=== PATIENT | female | born 1940 | race Caucasian/White ===

== ENCOUNTER → 2017-11-24 | Outpatient (CLI) | payer OTHER ==
[~2017-11-24] MED LIST: AMOX TR-K CLV1 EAC4 PO; ANTIVERT25 MG PO; LASIX 40 MG TAB40 M2 PO; LIPO-FLAVONOID1 EACH PO; OCUVITE LUTEIN1 EAC2 PO; PROPANOLOL ER PO; RESVERATROL PL1 EACH PO; TYLENOL EXTRA500 MG PO; VITAMIN D1000 UNI1 PO; VITAMINC500 PO
== END ==
LOC: M.WC 01:32
DX: I87.2 Venous insufficiency (chronic) (peripheral) (principal); L97.821 Non-pressure chronic ulcer of other part of left lower leg limited to breakdown of skin; I89.0 Lymphedema, not elsewhere classified; Z86.718 Personal history of other venous thrombosis and embolism; Z90.710 Acquired absence of both cervix and uterus

== ENCOUNTER → 2017-11-29 | Outpatient (CLI) | payer OTHER | LOC: M.WC 11-22 01:34 | DX: I87.2 Venous insufficiency (chronic) (peripheral) (principal); L97.821 Non-pressure chronic ulcer of other part of left lower leg limited to breakdown of skin; I89.0 Lymphedema, not elsewhere classified; Z86.718 Personal history of other venous thrombosis and embolism; Z90.710 Acquired absence of both cervix and uterus ==

== ENCOUNTER → 2017-12-06 | Outpatient (CLI) | payer OTHER | LOC: M.WC 01:53 | DX: I87.2 Venous insufficiency (chronic) (peripheral) (principal); L97.811 Non-pressure chronic ulcer of other part of right lower leg limited to breakdown of skin; L97.821 Non-pressure chronic ulcer of other part of left lower leg limited to breakdown of skin; I89.0 Lymphedema, not elsewhere classified; F32.9 Major depressive disorder, single episode, unspecified; Z86.718 Personal history of other venous thrombosis and embolism; Z90.710 Acquired absence of both cervix and uterus ==

== ENCOUNTER → 2017-12-15 | Outpatient (CLI) | payer OTHER, SELFPAY | LOC: M.WC 02:23 | DX: I87.2 Venous insufficiency (chronic) (peripheral) (principal); L97.821 Non-pressure chronic ulcer of other part of left lower leg limited to breakdown of skin; L97.811 Non-pressure chronic ulcer of other part of right lower leg limited to breakdown of skin; I89.0 Lymphedema, not elsewhere classified; Z86.718 Personal history of other venous thrombosis and embolism; Z90.710 Acquired absence of both cervix and uterus ==

== ENCOUNTER → 2017-12-20 | Outpatient (CLI) | payer OTHER | LOC: M.WC 12-13 11:00 | DX: I87.2 Venous insufficiency (chronic) (peripheral) (principal); L97.811 Non-pressure chronic ulcer of other part of right lower leg limited to breakdown of skin; L97.821 Non-pressure chronic ulcer of other part of left lower leg limited to breakdown of skin; I87.093 Postthrombotic syndrome with other complications of bilateral lower extremity; I89.0 Lymphedema, not elsewhere classified; Z86.718 Personal history of other venous thrombosis and embolism; Z90.710 Acquired absence of both cervix and uterus ==

== ENCOUNTER → 2017-12-27 | Outpatient (CLI) | payer OTHER, SELFPAY | LOC: M.WC 01:45 | DX: I87.2 Venous insufficiency (chronic) (peripheral) (principal); I87.093 Postthrombotic syndrome with other complications of bilateral lower extremity; L97.811 Non-pressure chronic ulcer of other part of right lower leg limited to breakdown of skin; L97.821 Non-pressure chronic ulcer of other part of left lower leg limited to breakdown of skin; I89.0 Lymphedema, not elsewhere classified; Z86.718 Personal history of other venous thrombosis and embolism; Z90.710 Acquired absence of both cervix and uterus ==

== ENCOUNTER → 2018-01-31 | Outpatient (CLI) | payer OTHER, SELFPAY | LOC: M.WC 02:26 | DX: L97.811 Non-pressure chronic ulcer of other part of right lower leg limited to breakdown of skin (principal); L97.821 Non-pressure chronic ulcer of other part of left lower leg limited to breakdown of skin; I87.013 Postthrombotic syndrome with ulcer of bilateral lower extremity; I89.0 Lymphedema, not elsewhere classified; I87.2 Venous insufficiency (chronic) (peripheral); Z86.718 Personal history of other venous thrombosis and embolism; Z90.710 Acquired absence of both cervix and uterus ==

== ENCOUNTER → 2018-02-07 | Outpatient (CLI) | payer OTHER, SELFPAY | LOC: M.WC 02:55 | DX: I87.2 Venous insufficiency (chronic) (peripheral) (principal); I87.093 Postthrombotic syndrome with other complications of bilateral lower extremity; L97.811 Non-pressure chronic ulcer of other part of right lower leg limited to breakdown of skin; L97.821 Non-pressure chronic ulcer of other part of left lower leg limited to breakdown of skin; I89.0 Lymphedema, not elsewhere classified; Z86.718 Personal history of other venous thrombosis and embolism; Z90.710 Acquired absence of both cervix and uterus ==

== ENCOUNTER → 2018-02-14 | Outpatient (CLI) | payer OTHER, SELFPAY | LOC: M.WC 00:31 | DX: L97.811 Non-pressure chronic ulcer of other part of right lower leg limited to breakdown of skin (principal); L97.821 Non-pressure chronic ulcer of other part of left lower leg limited to breakdown of skin; I89.0 Lymphedema, not elsewhere classified; I87.093 Postthrombotic syndrome with other complications of bilateral lower extremity; I87.2 Venous insufficiency (chronic) (peripheral); Z86.718 Personal history of other venous thrombosis and embolism; Z90.710 Acquired absence of both cervix and uterus ==

== ENCOUNTER → 2018-02-21 | Outpatient (CLI) | payer OTHER, SELFPAY | LOC: M.WC 01:43 | DX: L97.821 Non-pressure chronic ulcer of other part of left lower leg limited to breakdown of skin (principal); L97.811 Non-pressure chronic ulcer of other part of right lower leg limited to breakdown of skin; I87.093 Postthrombotic syndrome with other complications of bilateral lower extremity; I87.2 Venous insufficiency (chronic) (peripheral); I89.0 Lymphedema, not elsewhere classified; Z86.718 Personal history of other venous thrombosis and embolism; Z90.710 Acquired absence of both cervix and uterus ==

== ENCOUNTER → 2018-02-28 | Outpatient (CLI) | payer OTHER, SELFPAY | LOC: M.WC 02:58 | DX: L97.811 Non-pressure chronic ulcer of other part of right lower leg limited to breakdown of skin (principal); L97.821 Non-pressure chronic ulcer of other part of left lower leg limited to breakdown of skin; I87.093 Postthrombotic syndrome with other complications of bilateral lower extremity; I87.2 Venous insufficiency (chronic) (peripheral); I89.0 Lymphedema, not elsewhere classified; Z86.718 Personal history of other venous thrombosis and embolism; Z90.710 Acquired absence of both cervix and uterus ==

== ENCOUNTER → 2018-03-07 | Outpatient (CLI) | payer OTHER, SELFPAY | LOC: M.WC 03:09 | DX: L97.821 Non-pressure chronic ulcer of other part of left lower leg limited to breakdown of skin (principal); L97.811 Non-pressure chronic ulcer of other part of right lower leg limited to breakdown of skin; I87.2 Venous insufficiency (chronic) (peripheral); I87.093 Postthrombotic syndrome with other complications of bilateral lower extremity; I89.0 Lymphedema, not elsewhere classified; Z86.718 Personal history of other venous thrombosis and embolism; Z90.710 Acquired absence of both cervix and uterus ==

== ENCOUNTER → 2018-03-14 | Outpatient (CLI) | payer OTHER, SELFPAY | LOC: M.WC 01:31 | DX: L97.811 Non-pressure chronic ulcer of other part of right lower leg limited to breakdown of skin (principal); L97.821 Non-pressure chronic ulcer of other part of left lower leg limited to breakdown of skin; I87.093 Postthrombotic syndrome with other complications of bilateral lower extremity; I89.0 Lymphedema, not elsewhere classified; I87.2 Venous insufficiency (chronic) (peripheral); Z86.718 Personal history of other venous thrombosis and embolism; Z90.710 Acquired absence of both cervix and uterus ==

== ENCOUNTER → 2018-03-21 | Outpatient (CLI) | payer OTHER, SELFPAY | LOC: M.WC 02:10 | DX: L97.811 Non-pressure chronic ulcer of other part of right lower leg limited to breakdown of skin (principal); L97.821 Non-pressure chronic ulcer of other part of left lower leg limited to breakdown of skin; I87.2 Venous insufficiency (chronic) (peripheral); I87.093 Postthrombotic syndrome with other complications of bilateral lower extremity; I89.0 Lymphedema, not elsewhere classified; Z86.718 Personal history of other venous thrombosis and embolism; Z90.710 Acquired absence of both cervix and uterus ==

== ENCOUNTER → 2018-03-28 | Outpatient (CLI) | payer OTHER, SELFPAY | LOC: M.WC 03:35 | DX: L97.821 Non-pressure chronic ulcer of other part of left lower leg limited to breakdown of skin (principal); L97.811 Non-pressure chronic ulcer of other part of right lower leg limited to breakdown of skin; I87.2 Venous insufficiency (chronic) (peripheral); I89.0 Lymphedema, not elsewhere classified; Z86.718 Personal history of other venous thrombosis and embolism; Z90.710 Acquired absence of both cervix and uterus ==

== ENCOUNTER → 2018-04-04 | Outpatient (CLI) | payer OTHER, SELFPAY | LOC: M.WC 04:01 | DX: L97.811 Non-pressure chronic ulcer of other part of right lower leg limited to breakdown of skin (principal); L97.821 Non-pressure chronic ulcer of other part of left lower leg limited to breakdown of skin; I87.093 Postthrombotic syndrome with other complications of bilateral lower extremity; I89.0 Lymphedema, not elsewhere classified; I87.2 Venous insufficiency (chronic) (peripheral); Z86.718 Personal history of other venous thrombosis and embolism; Z90.710 Acquired absence of both cervix and uterus ==

== ENCOUNTER → 2018-04-11 | Outpatient (CLI) | payer OTHER, SELFPAY | LOC: M.WC 02:11 | DX: I87.013 Postthrombotic syndrome with ulcer of bilateral lower extremity (principal); L97.821 Non-pressure chronic ulcer of other part of left lower leg limited to breakdown of skin; L97.811 Non-pressure chronic ulcer of other part of right lower leg limited to breakdown of skin; I89.0 Lymphedema, not elsewhere classified; Z86.718 Personal history of other venous thrombosis and embolism; Z90.710 Acquired absence of both cervix and uterus ==

== ENCOUNTER → 2018-04-18 | Outpatient (CLI) | payer OTHER, SELFPAY | LOC: M.WC 02:12 | DX: L97.822 Non-pressure chronic ulcer of other part of left lower leg with fat layer exposed (principal); L97.811 Non-pressure chronic ulcer of other part of right lower leg limited to breakdown of skin; I89.0 Lymphedema, not elsewhere classified; I87.093 Postthrombotic syndrome with other complications of bilateral lower extremity; Z68.43 Body mass index [BMI] 50.0-59.9, adult; Z86.718 Personal history of other venous thrombosis and embolism; Z90.710 Acquired absence of both cervix and uterus ==

== ENCOUNTER → 2018-04-27 | Outpatient (CLI) | payer OTHER, SELFPAY | LOC: M.WC 04-26 11:00 | DX: I87.013 Postthrombotic syndrome with ulcer of bilateral lower extremity (principal); L97.821 Non-pressure chronic ulcer of other part of left lower leg limited to breakdown of skin; I87.2 Venous insufficiency (chronic) (peripheral); L97.811 Non-pressure chronic ulcer of other part of right lower leg limited to breakdown of skin; I89.0 Lymphedema, not elsewhere classified; Z90.710 Acquired absence of both cervix and uterus; Z86.718 Personal history of other venous thrombosis and embolism ==

== ENCOUNTER → 2018-05-02 | Outpatient (CLI) | payer OTHER, SELFPAY | LOC: M.WC 01:48 | DX: L97.811 Non-pressure chronic ulcer of other part of right lower leg limited to breakdown of skin (principal); L97.821 Non-pressure chronic ulcer of other part of left lower leg limited to breakdown of skin; I87.2 Venous insufficiency (chronic) (peripheral); I89.0 Lymphedema, not elsewhere classified; I87.093 Postthrombotic syndrome with other complications of bilateral lower extremity; Z68.43 Body mass index [BMI] 50.0-59.9, adult; Z86.718 Personal history of other venous thrombosis and embolism; Z90.710 Acquired absence of both cervix and uterus ==

== ENCOUNTER → 2018-05-09 | Outpatient (CLI) | payer OTHER, SELFPAY | LOC: M.WC 00:39 | DX: L97.821 Non-pressure chronic ulcer of other part of left lower leg limited to breakdown of skin (principal); L97.811 Non-pressure chronic ulcer of other part of right lower leg limited to breakdown of skin; I89.0 Lymphedema, not elsewhere classified; I87.093 Postthrombotic syndrome with other complications of bilateral lower extremity; I87.2 Venous insufficiency (chronic) (peripheral); Z90.710 Acquired absence of both cervix and uterus; Z86.718 Personal history of other venous thrombosis and embolism ==

== ENCOUNTER → 2018-05-16 | Outpatient (CLI) | payer OTHER, SELFPAY | LOC: M.WC 02:55 | DX: L97.821 Non-pressure chronic ulcer of other part of left lower leg limited to breakdown of skin (principal); L97.811 Non-pressure chronic ulcer of other part of right lower leg limited to breakdown of skin; I87.2 Venous insufficiency (chronic) (peripheral); I89.0 Lymphedema, not elsewhere classified; Z86.718 Personal history of other venous thrombosis and embolism; Z90.710 Acquired absence of both cervix and uterus ==

== ENCOUNTER → 2018-05-23 | Outpatient (CLI) | payer OTHER, SELFPAY | LOC: M.WC 04:53 | DX: L97.821 Non-pressure chronic ulcer of other part of left lower leg limited to breakdown of skin (principal); L97.811 Non-pressure chronic ulcer of other part of right lower leg limited to breakdown of skin; I89.0 Lymphedema, not elsewhere classified; I87.2 Venous insufficiency (chronic) (peripheral); Z86.718 Personal history of other venous thrombosis and embolism; Z90.710 Acquired absence of both cervix and uterus ==

== ENCOUNTER → 2018-05-30 | Outpatient (CLI) | payer OTHER, SELFPAY | LOC: M.WC 04:58 | DX: L97.811 Non-pressure chronic ulcer of other part of right lower leg limited to breakdown of skin (principal); L97.821 Non-pressure chronic ulcer of other part of left lower leg limited to breakdown of skin; I87.2 Venous insufficiency (chronic) (peripheral); I89.0 Lymphedema, not elsewhere classified; Z90.710 Acquired absence of both cervix and uterus; Z86.718 Personal history of other venous thrombosis and embolism ==

== ENCOUNTER → 2018-06-08 | Outpatient (CLI) | payer OTHER, SELFPAY | LOC: M.WC 06-06 13:00 | DX: L97.821 Non-pressure chronic ulcer of other part of left lower leg limited to breakdown of skin (principal); I87.2 Venous insufficiency (chronic) (peripheral); I89.0 Lymphedema, not elsewhere classified; Z86.718 Personal history of other venous thrombosis and embolism; Z90.710 Acquired absence of both cervix and uterus ==

== ENCOUNTER → 2018-06-13 | Outpatient (CLI) | payer OTHER, SELFPAY | LOC: M.WC 03:26 | DX: L97.821 Non-pressure chronic ulcer of other part of left lower leg limited to breakdown of skin (principal); I87.093 Postthrombotic syndrome with other complications of bilateral lower extremity; I89.0 Lymphedema, not elsewhere classified; I87.2 Venous insufficiency (chronic) (peripheral); Z90.710 Acquired absence of both cervix and uterus; Z86.718 Personal history of other venous thrombosis and embolism ==

== ENCOUNTER → 2018-06-23 | Outpatient (CLI) | payer OTHER, SELFPAY | LOC: M.WC 01:53 | DX: L97.821 Non-pressure chronic ulcer of other part of left lower leg limited to breakdown of skin (principal); I87.2 Venous insufficiency (chronic) (peripheral); I89.0 Lymphedema, not elsewhere classified; Z86.718 Personal history of other venous thrombosis and embolism; Z90.710 Acquired absence of both cervix and uterus ==

== ENCOUNTER → 2018-06-27 | Outpatient (CLI) | payer OTHER, SELFPAY | LOC: M.WC 05:11 | DX: L97.821 Non-pressure chronic ulcer of other part of left lower leg limited to breakdown of skin (principal); I87.2 Venous insufficiency (chronic) (peripheral); I89.0 Lymphedema, not elsewhere classified; F32.9 Major depressive disorder, single episode, unspecified; Z90.710 Acquired absence of both cervix and uterus; Z86.718 Personal history of other venous thrombosis and embolism ==

== ENCOUNTER → 2018-07-04 | Outpatient (CLI) | payer OTHER, SELFPAY | LOC: M.WC 05:05 | DX: L97.821 Non-pressure chronic ulcer of other part of left lower leg limited to breakdown of skin (principal); I89.0 Lymphedema, not elsewhere classified; I87.2 Venous insufficiency (chronic) (peripheral); Z86.718 Personal history of other venous thrombosis and embolism; Z90.710 Acquired absence of both cervix and uterus ==

== ENCOUNTER → 2018-07-11 | Outpatient (CLI) | payer OTHER, SELFPAY | LOC: M.WC 04:45 | DX: L97.821 Non-pressure chronic ulcer of other part of left lower leg limited to breakdown of skin (principal); L97.811 Non-pressure chronic ulcer of other part of right lower leg limited to breakdown of skin; I89.0 Lymphedema, not elsewhere classified; F32.9 Major depressive disorder, single episode, unspecified; Z86.718 Personal history of other venous thrombosis and embolism; Z90.710 Acquired absence of both cervix and uterus ==

== ENCOUNTER → 2018-07-20 | Outpatient (CLI) | payer OTHER, SELFPAY | LOC: M.WC 02:25 | DX: L97.821 Non-pressure chronic ulcer of other part of left lower leg limited to breakdown of skin (principal); L97.811 Non-pressure chronic ulcer of other part of right lower leg limited to breakdown of skin; I87.2 Venous insufficiency (chronic) (peripheral); I87.093 Postthrombotic syndrome with other complications of bilateral lower extremity; F32.9 Major depressive disorder, single episode, unspecified; Z68.43 Body mass index [BMI] 50.0-59.9, adult ==

== ENCOUNTER → 2018-07-26 | Outpatient (CLI) | payer OTHER, SELFPAY | LOC: M.WC 10:00 | DX: L97.821 Non-pressure chronic ulcer of other part of left lower leg limited to breakdown of skin (principal); L97.811 Non-pressure chronic ulcer of other part of right lower leg limited to breakdown of skin; I87.2 Venous insufficiency (chronic) (peripheral); I89.0 Lymphedema, not elsewhere classified; Z86.718 Personal history of other venous thrombosis and embolism ==

== ENCOUNTER → 2018-08-03 | Outpatient (CLI) | payer OTHER, SELFPAY | LOC: M.WC 04:43 | DX: L97.821 Non-pressure chronic ulcer of other part of left lower leg limited to breakdown of skin (principal); L97.811 Non-pressure chronic ulcer of other part of right lower leg limited to breakdown of skin; I89.0 Lymphedema, not elsewhere classified; I87.2 Venous insufficiency (chronic) (peripheral); F32.9 Major depressive disorder, single episode, unspecified; Z86.718 Personal history of other venous thrombosis and embolism ==

== ENCOUNTER → 2018-08-08 | Outpatient (CLI) | payer OTHER, SELFPAY | LOC: M.WC 04:44 | DX: L97.821 Non-pressure chronic ulcer of other part of left lower leg limited to breakdown of skin (principal); L97.818 Non-pressure chronic ulcer of other part of right lower leg with other specified severity; I87.013 Postthrombotic syndrome with ulcer of bilateral lower extremity; I89.0 Lymphedema, not elsewhere classified; I87.2 Venous insufficiency (chronic) (peripheral); F32.9 Major depressive disorder, single episode, unspecified; Z86.711 Personal history of pulmonary embolism; Z86.718 Personal history of other venous thrombosis and embolism ==

== ENCOUNTER → 2018-08-15 | Outpatient (CLI) | payer OTHER, SELFPAY | LOC: M.WC 05:26 | DX: L97.821 Non-pressure chronic ulcer of other part of left lower leg limited to breakdown of skin (principal); L97.811 Non-pressure chronic ulcer of other part of right lower leg limited to breakdown of skin; I87.2 Venous insufficiency (chronic) (peripheral); I89.0 Lymphedema, not elsewhere classified; I87.013 Postthrombotic syndrome with ulcer of bilateral lower extremity; F32.9 Major depressive disorder, single episode, unspecified; Z86.711 Personal history of pulmonary embolism; Z86.718 Personal history of other venous thrombosis and embolism ==

== ENCOUNTER → 2018-08-24 | Outpatient (CLI) | payer OTHER, SELFPAY | LOC: M.WC 08-22 13:00 | DX: I87.013 Postthrombotic syndrome with ulcer of bilateral lower extremity (principal); L97.821 Non-pressure chronic ulcer of other part of left lower leg limited to breakdown of skin; L97.811 Non-pressure chronic ulcer of other part of right lower leg limited to breakdown of skin; I87.2 Venous insufficiency (chronic) (peripheral); I89.0 Lymphedema, not elsewhere classified; F32.9 Major depressive disorder, single episode, unspecified; Z86.718 Personal history of other venous thrombosis and embolism; Z86.711 Personal history of pulmonary embolism ==

== ENCOUNTER → 2018-08-29 | Outpatient (CLI) | payer OTHER, SELFPAY | LOC: M.WC 04:58 | DX: I87.093 Postthrombotic syndrome with other complications of bilateral lower extremity (principal); L97.821 Non-pressure chronic ulcer of other part of left lower leg limited to breakdown of skin; L97.811 Non-pressure chronic ulcer of other part of right lower leg limited to breakdown of skin; I89.0 Lymphedema, not elsewhere classified; I87.2 Venous insufficiency (chronic) (peripheral); F32.9 Major depressive disorder, single episode, unspecified; Z86.711 Personal history of pulmonary embolism; Z86.718 Personal history of other venous thrombosis and embolism ==

== ENCOUNTER → 2018-09-05 | Outpatient (CLI) | payer OTHER, SELFPAY | LOC: M.WC 04:38 | DX: I87.013 Postthrombotic syndrome with ulcer of bilateral lower extremity (principal); L97.811 Non-pressure chronic ulcer of other part of right lower leg limited to breakdown of skin; L97.821 Non-pressure chronic ulcer of other part of left lower leg limited to breakdown of skin; I87.2 Venous insufficiency (chronic) (peripheral); I89.0 Lymphedema, not elsewhere classified; F32.9 Major depressive disorder, single episode, unspecified; Z86.711 Personal history of pulmonary embolism; Z86.718 Personal history of other venous thrombosis and embolism ==

== ENCOUNTER → 2018-09-12 | Outpatient (CLI) | payer OTHER, SELFPAY | LOC: M.WC 05:22 | DX: I87.013 Postthrombotic syndrome with ulcer of bilateral lower extremity (principal); L97.821 Non-pressure chronic ulcer of other part of left lower leg limited to breakdown of skin; L97.811 Non-pressure chronic ulcer of other part of right lower leg limited to breakdown of skin; I89.0 Lymphedema, not elsewhere classified; I87.2 Venous insufficiency (chronic) (peripheral); F32.9 Major depressive disorder, single episode, unspecified; Z86.711 Personal history of pulmonary embolism ==

== ENCOUNTER → 2018-09-21 | Outpatient (CLI) | payer OTHER, SELFPAY | LOC: M.WC 09-19 13:30 | DX: L97.821 Non-pressure chronic ulcer of other part of left lower leg limited to breakdown of skin (principal); L97.811 Non-pressure chronic ulcer of other part of right lower leg limited to breakdown of skin; I89.0 Lymphedema, not elsewhere classified; Z86.718 Personal history of other venous thrombosis and embolism ==

== ENCOUNTER → 2018-09-26 | Outpatient (CLI) | payer OTHER, SELFPAY | LOC: M.WC 04:54 | DX: I87.012 Postthrombotic syndrome with ulcer of left lower extremity (principal); L97.821 Non-pressure chronic ulcer of other part of left lower leg limited to breakdown of skin; I87.2 Venous insufficiency (chronic) (peripheral); I89.0 Lymphedema, not elsewhere classified; F32.9 Major depressive disorder, single episode, unspecified; Z86.711 Personal history of pulmonary embolism; Z86.718 Personal history of other venous thrombosis and embolism ==

== ENCOUNTER → 2018-10-05 | Outpatient (CLI) | payer OTHER, SELFPAY | LOC: M.WC 05:05 | DX: I87.013 Postthrombotic syndrome with ulcer of bilateral lower extremity (principal); L97.818 Non-pressure chronic ulcer of other part of right lower leg with other specified severity; L97.821 Non-pressure chronic ulcer of other part of left lower leg limited to breakdown of skin; I89.0 Lymphedema, not elsewhere classified; I87.2 Venous insufficiency (chronic) (peripheral); F32.9 Major depressive disorder, single episode, unspecified; Z86.711 Personal history of pulmonary embolism; Z86.718 Personal history of other venous thrombosis and embolism ==

== ENCOUNTER → 2018-10-10 | Outpatient (CLI) | payer OTHER, SELFPAY | LOC: M.WC 04:33 | DX: I87.012 Postthrombotic syndrome with ulcer of left lower extremity (principal); L97.821 Non-pressure chronic ulcer of other part of left lower leg limited to breakdown of skin; L84 Corns and callosities; I89.0 Lymphedema, not elsewhere classified; I87.2 Venous insufficiency (chronic) (peripheral); F32.9 Major depressive disorder, single episode, unspecified; Z86.711 Personal history of pulmonary embolism ==

== ENCOUNTER → 2018-10-17 | Outpatient (CLI) | payer OTHER, SELFPAY | LOC: M.WC 04:59 | DX: I87.012 Postthrombotic syndrome with ulcer of left lower extremity (principal); L97.821 Non-pressure chronic ulcer of other part of left lower leg limited to breakdown of skin; I87.2 Venous insufficiency (chronic) (peripheral); I89.0 Lymphedema, not elsewhere classified; F32.9 Major depressive disorder, single episode, unspecified; Z86.711 Personal history of pulmonary embolism ==

== ENCOUNTER → 2018-10-24 | Outpatient (CLI) | payer OTHER, SELFPAY | LOC: M.WC 05:21 | DX: I87.012 Postthrombotic syndrome with ulcer of left lower extremity (principal); L97.821 Non-pressure chronic ulcer of other part of left lower leg limited to breakdown of skin; I89.0 Lymphedema, not elsewhere classified; I87.2 Venous insufficiency (chronic) (peripheral); F32.9 Major depressive disorder, single episode, unspecified; Z86.711 Personal history of pulmonary embolism ==

== ENCOUNTER → 2018-10-31 | Outpatient (CLI) | payer OTHER, SELFPAY | LOC: M.WC 05:19 | DX: I83.028 Varicose veins of left lower extremity with ulcer other part of lower leg (principal); I87.012 Postthrombotic syndrome with ulcer of left lower extremity; L97.821 Non-pressure chronic ulcer of other part of left lower leg limited to breakdown of skin; I89.0 Lymphedema, not elsewhere classified; F32.9 Major depressive disorder, single episode, unspecified; Z86.711 Personal history of pulmonary embolism ==

== ENCOUNTER → 2018-11-07 | Outpatient (CLI) | payer OTHER, SELFPAY | LOC: M.WC 04:46 | DX: I87.012 Postthrombotic syndrome with ulcer of left lower extremity (principal); L97.821 Non-pressure chronic ulcer of other part of left lower leg limited to breakdown of skin; I87.091 Postthrombotic syndrome with other complications of right lower extremity; I89.0 Lymphedema, not elsewhere classified; F32.9 Major depressive disorder, single episode, unspecified; Z86.711 Personal history of pulmonary embolism ==

== ENCOUNTER → 2018-11-14 | Outpatient (CLI) | payer OTHER, SELFPAY | LOC: M.WC 04:51 | DX: L97.821 Non-pressure chronic ulcer of other part of left lower leg limited to breakdown of skin (principal); I89.0 Lymphedema, not elsewhere classified; I87.2 Venous insufficiency (chronic) (peripheral); Z86.718 Personal history of other venous thrombosis and embolism ==

== ENCOUNTER → 2018-11-23 | Outpatient (CLI) | payer OTHER, SELFPAY | LOC: M.WC 04:33 | DX: I87.032 Postthrombotic syndrome with ulcer and inflammation of left lower extremity (principal); L97.821 Non-pressure chronic ulcer of other part of left lower leg limited to breakdown of skin; I89.0 Lymphedema, not elsewhere classified; I87.2 Venous insufficiency (chronic) (peripheral); F32.9 Major depressive disorder, single episode, unspecified; Z86.711 Personal history of pulmonary embolism ==

== ENCOUNTER → 2018-11-30 | Outpatient (CLI) | payer OTHER, SELFPAY | LOC: M.WC 11:00 | DX: I87.012 Postthrombotic syndrome with ulcer of left lower extremity (principal); L97.821 Non-pressure chronic ulcer of other part of left lower leg limited to breakdown of skin; I87.091 Postthrombotic syndrome with other complications of right lower extremity; I89.0 Lymphedema, not elsewhere classified; I87.2 Venous insufficiency (chronic) (peripheral); F32.9 Major depressive disorder, single episode, unspecified; Z86.711 Personal history of pulmonary embolism ==

== ENCOUNTER → 2018-12-05 | Outpatient (CLI) | payer OTHER, SELFPAY | LOC: M.WC 03:46 | DX: I87.012 Postthrombotic syndrome with ulcer of left lower extremity (principal); L97.822 Non-pressure chronic ulcer of other part of left lower leg with fat layer exposed; I87.091 Postthrombotic syndrome with other complications of right lower extremity; I89.0 Lymphedema, not elsewhere classified; L84 Corns and callosities; F32.9 Major depressive disorder, single episode, unspecified; Z86.711 Personal history of pulmonary embolism ==

== ENCOUNTER → 2018-12-12 | Outpatient (CLI) | payer OTHER, SELFPAY | LOC: M.WC 05:09 | DX: I87.022 Postthrombotic syndrome with inflammation of left lower extremity (principal); L97.821 Non-pressure chronic ulcer of other part of left lower leg limited to breakdown of skin; I87.2 Venous insufficiency (chronic) (peripheral); I89.0 Lymphedema, not elsewhere classified; F32.9 Major depressive disorder, single episode, unspecified; Z86.718 Personal history of other venous thrombosis and embolism; Z86.711 Personal history of pulmonary embolism ==

== ENCOUNTER → 2018-12-19 | Outpatient (CLI) | payer OTHER, SELFPAY | LOC: M.WC 04:27 | DX: I83.028 Varicose veins of left lower extremity with ulcer other part of lower leg (principal); I87.032 Postthrombotic syndrome with ulcer and inflammation of left lower extremity; L97.821 Non-pressure chronic ulcer of other part of left lower leg limited to breakdown of skin; I87.091 Postthrombotic syndrome with other complications of right lower extremity; I89.0 Lymphedema, not elsewhere classified; F32.9 Major depressive disorder, single episode, unspecified; Z86.711 Personal history of pulmonary embolism ==

== ENCOUNTER → 2018-12-26 | Outpatient (CLI) | payer OTHER, SELFPAY | LOC: M.WC 04:49 | DX: I83.028 Varicose veins of left lower extremity with ulcer other part of lower leg (principal); L97.821 Non-pressure chronic ulcer of other part of left lower leg limited to breakdown of skin; I89.0 Lymphedema, not elsewhere classified; I87.091 Postthrombotic syndrome with other complications of right lower extremity; I87.2 Venous insufficiency (chronic) (peripheral); F32.9 Major depressive disorder, single episode, unspecified; Z86.711 Personal history of pulmonary embolism; Z86.718 Personal history of other venous thrombosis and embolism ==

== ENCOUNTER → 2019-01-11 | Outpatient (CLI) | payer OTHER, SELFPAY | LOC: M.WC 01-09 03:57 | DX: I83.028 Varicose veins of left lower extremity with ulcer other part of lower leg (principal); L97.822 Non-pressure chronic ulcer of other part of left lower leg with fat layer exposed; I87.093 Postthrombotic syndrome with other complications of bilateral lower extremity; I89.0 Lymphedema, not elsewhere classified; F32.9 Major depressive disorder, single episode, unspecified; Z86.711 Personal history of pulmonary embolism ==

== ENCOUNTER → 2019-02-27 | Outpatient (CLI) | payer OTHER | LOC: M.WC 05:33 | DX: I83.028 Varicose veins of left lower extremity with ulcer other part of lower leg (principal); L97.821 Non-pressure chronic ulcer of other part of left lower leg limited to breakdown of skin; I87.093 Postthrombotic syndrome with other complications of bilateral lower extremity; I89.0 Lymphedema, not elsewhere classified; I87.2 Venous insufficiency (chronic) (peripheral); E66.9 Obesity, unspecified; F32.9 Major depressive disorder, single episode, unspecified; Z86.711 Personal history of pulmonary embolism; Z86.718 Personal history of other venous thrombosis and embolism; Z68.43 Body mass index [BMI] 50.0-59.9, adult ==

== ENCOUNTER → 2019-03-13 | Outpatient (CLI) | payer OTHER | LOC: M.WC 05:13 | DX: L97.821 Non-pressure chronic ulcer of other part of left lower leg limited to breakdown of skin (principal); I87.093 Postthrombotic syndrome with other complications of bilateral lower extremity; I89.0 Lymphedema, not elsewhere classified; F32.9 Major depressive disorder, single episode, unspecified; Z86.718 Personal history of other venous thrombosis and embolism ==

== ENCOUNTER → 2019-03-20 | Outpatient (CLI) | payer OTHER, SELFPAY | LOC: M.WC 04:46 | DX: I83.018 Varicose veins of right lower extremity with ulcer other part of lower leg (principal); L97.821 Non-pressure chronic ulcer of other part of left lower leg limited to breakdown of skin; I87.093 Postthrombotic syndrome with other complications of bilateral lower extremity; I89.0 Lymphedema, not elsewhere classified; F32.9 Major depressive disorder, single episode, unspecified; Z86.718 Personal history of other venous thrombosis and embolism; Z86.711 Personal history of pulmonary embolism ==

== ENCOUNTER → 2019-03-27 | Outpatient (CLI) | payer OTHER, SELFPAY | LOC: M.WC 04:48 | DX: I83.028 Varicose veins of left lower extremity with ulcer other part of lower leg (principal); L97.821 Non-pressure chronic ulcer of other part of left lower leg limited to breakdown of skin; I83.018 Varicose veins of right lower extremity with ulcer other part of lower leg; L97.811 Non-pressure chronic ulcer of other part of right lower leg limited to breakdown of skin; I89.0 Lymphedema, not elsewhere classified; I87.093 Postthrombotic syndrome with other complications of bilateral lower extremity; F32.9 Major depressive disorder, single episode, unspecified; Z86.711 Personal history of pulmonary embolism; Z86.718 Personal history of other venous thrombosis and embolism ==

== ENCOUNTER → 2019-04-03 | Outpatient (CLI) | payer OTHER, SELFPAY | LOC: M.WC 04:29 | DX: I83.028 Varicose veins of left lower extremity with ulcer other part of lower leg (principal); L97.821 Non-pressure chronic ulcer of other part of left lower leg limited to breakdown of skin; I83.018 Varicose veins of right lower extremity with ulcer other part of lower leg; L97.811 Non-pressure chronic ulcer of other part of right lower leg limited to breakdown of skin; I87.093 Postthrombotic syndrome with other complications of bilateral lower extremity; I89.0 Lymphedema, not elsewhere classified; F32.9 Major depressive disorder, single episode, unspecified; Z86.711 Personal history of pulmonary embolism; Z86.718 Personal history of other venous thrombosis and embolism ==

== ENCOUNTER → 2019-05-08 | Outpatient (CLI) | payer OTHER, SELFPAY | LOC: M.WC 04-10 09:00 | DX: L97.821 Non-pressure chronic ulcer of other part of left lower leg limited to breakdown of skin (principal); L97.811 Non-pressure chronic ulcer of other part of right lower leg limited to breakdown of skin; I87.2 Venous insufficiency (chronic) (peripheral); I89.0 Lymphedema, not elsewhere classified; I87.093 Postthrombotic syndrome with other complications of bilateral lower extremity; F32.9 Major depressive disorder, single episode, unspecified; Z86.718 Personal history of other venous thrombosis and embolism ==

== ENCOUNTER → 2019-05-14 | Outpatient (CLI) | payer OTHER, SELFPAY | LOC: M.WC 00:35 | DX: I83.018 Varicose veins of right lower extremity with ulcer other part of lower leg (principal); L97.811 Non-pressure chronic ulcer of other part of right lower leg limited to breakdown of skin; I83.028 Varicose veins of left lower extremity with ulcer other part of lower leg; L97.821 Non-pressure chronic ulcer of other part of left lower leg limited to breakdown of skin; I87.093 Postthrombotic syndrome with other complications of bilateral lower extremity; I89.0 Lymphedema, not elsewhere classified; F32.9 Major depressive disorder, single episode, unspecified; Z86.711 Personal history of pulmonary embolism; Z86.718 Personal history of other venous thrombosis and embolism ==

== ENCOUNTER → 2019-05-22 | Outpatient (CLI) | payer OTHER, SELFPAY | LOC: M.WC 05:35 | DX: I83.018 Varicose veins of right lower extremity with ulcer other part of lower leg (principal); L97.811 Non-pressure chronic ulcer of other part of right lower leg limited to breakdown of skin; I83.028 Varicose veins of left lower extremity with ulcer other part of lower leg; L97.821 Non-pressure chronic ulcer of other part of left lower leg limited to breakdown of skin; I89.0 Lymphedema, not elsewhere classified; I87.013 Postthrombotic syndrome with ulcer of bilateral lower extremity; F32.9 Major depressive disorder, single episode, unspecified; Z86.711 Personal history of pulmonary embolism; Z86.718 Personal history of other venous thrombosis and embolism ==

== ENCOUNTER → 2019-06-05 | Outpatient (CLI) | payer OTHER, SELFPAY | LOC: M.WC 05:20 | DX: I83.018 Varicose veins of right lower extremity with ulcer other part of lower leg (principal); L97.811 Non-pressure chronic ulcer of other part of right lower leg limited to breakdown of skin; I83.028 Varicose veins of left lower extremity with ulcer other part of lower leg; L97.821 Non-pressure chronic ulcer of other part of left lower leg limited to breakdown of skin; I87.013 Postthrombotic syndrome with ulcer of bilateral lower extremity; I89.0 Lymphedema, not elsewhere classified; F32.9 Major depressive disorder, single episode, unspecified; Z86.718 Personal history of other venous thrombosis and embolism; Z86.711 Personal history of pulmonary embolism ==

== ENCOUNTER → 2019-08-07 | Outpatient (CLI) | payer OTHER, SELFPAY | LOC: M.WC 04:32 | DX: I83.028 Varicose veins of left lower extremity with ulcer other part of lower leg (principal); L97.821 Non-pressure chronic ulcer of other part of left lower leg limited to breakdown of skin; I87.091 Postthrombotic syndrome with other complications of right lower extremity; I89.0 Lymphedema, not elsewhere classified; F32.9 Major depressive disorder, single episode, unspecified; Z86.711 Personal history of pulmonary embolism; Z86.718 Personal history of other venous thrombosis and embolism ==

== ENCOUNTER → 2019-09-04 | Outpatient (CLI) | payer OTHER ==
--- NOTE | 2019-09-07 11:07 | PATH ---
[facility] [address] [place] [address] PATHOLOGY RPT PROCEDURE Name: GEETHA GIBSON V Room: [facility] Gladys#: [id number] Admission: 09/04/19 Date of : 44 Discharge: Report #: [id number] Path Case #: [id number] [facility] Accession Number: [id number] . 01 Material submitted: . ankle - LEFT ANKLE WOUND. Modifiers: left . 01 Clinical history: . None provided . 02 Diagnosis: Biopsy left ankle wound: - Predominantly fibrino-inflammatory debris and scant benign skin with nonspecific ulceration. See comment. (HILDA:leann; 09/06/2019) MBR 09/06/2019 1154 Local . 02 Comment: Properly controlled PAS fungus stain performed on A1 is negative. (HILDA:leann; 09/06/2019) . 02 Electronically signed: . Caleb Farah MD, Pathologist NPI- [id number] . 01 Gross description: . The specimen is received in formalin, labeled "LeGeetha licona, biopsy left ankle" and further verified as "left ankle wound" per the problem specimen form and consists of 2 raised segments of carrasco-torres skin measuring 0.5 x 0.4 x 0.2 cm and 0.7 x 0.5 x 0.3 cm. The margins are inked black. The smaller is bisected and the larger is trisected. They are entirely submitted in A1. (SDY; 09/05/2019) SYU/SYU 09/06/2019 1151 Local . 02 Pathologist provided ICD-10: L08.9, L98.499 . 02 CPT . 779153, 837731 Specimen Comment: A courtesy copy of this report has been sent to Specimen Comment: [phone], . Specimen Comment: Report sent to / DR CRAFT Performed at: [address] [id number] MD Kishor Knowles MD Phone: [phone] Performed at: 02 [place] [address] PATHOLOGY RPT PROCEDURE Name: GEETHA GIBSON [id number] Admission: 09/04/19 Date of : 44 Discharge: Report #: [id number] Path Case #: [id number] [facility] [address] RACHEAL Rodriguez [id number] MD Caleb Farah MD Phone: [phone]
== END ==
LOC: M.WC 04:59
DX: I83.028 Varicose veins of left lower extremity with ulcer other part of lower leg (principal); I87.012 Postthrombotic syndrome with ulcer of left lower extremity; L97.821 Non-pressure chronic ulcer of other part of left lower leg limited to breakdown of skin; I87.091 Postthrombotic syndrome with other complications of right lower extremity; I89.0 Lymphedema, not elsewhere classified; F32.9 Major depressive disorder, single episode, unspecified; Z86.718 Personal history of other venous thrombosis and embolism; Z86.711 Personal history of pulmonary embolism

== ENCOUNTER → 2019-10-02 | Outpatient (CLI) | payer OTHER | LOC: M.WC 04:58 | DX: L97.821 Non-pressure chronic ulcer of other part of left lower leg limited to breakdown of skin (principal); I87.093 Postthrombotic syndrome with other complications of bilateral lower extremity; I89.0 Lymphedema, not elsewhere classified; F32.9 Major depressive disorder, single episode, unspecified; Z86.718 Personal history of other venous thrombosis and embolism; Z86.711 Personal history of pulmonary embolism ==

== ENCOUNTER → 2019-10-30 | Outpatient (CLI) | payer OTHER, SELFPAY | LOC: M.WC 04:31 | DX: I83.028 Varicose veins of left lower extremity with ulcer other part of lower leg (principal); I87.012 Postthrombotic syndrome with ulcer of left lower extremity; L97.822 Non-pressure chronic ulcer of other part of left lower leg with fat layer exposed; I87.091 Postthrombotic syndrome with other complications of right lower extremity; I89.0 Lymphedema, not elsewhere classified; F32.9 Major depressive disorder, single episode, unspecified; Z86.711 Personal history of pulmonary embolism; Z86.718 Personal history of other venous thrombosis and embolism ==

== ENCOUNTER → 2019-12-11 | Outpatient (CLI) | payer MEDICARE, SELFPAY | LOC: M.WC 09:00 | DX: I83.028 Varicose veins of left lower extremity with ulcer other part of lower leg (principal); I87.012 Postthrombotic syndrome with ulcer of left lower extremity; L97.821 Non-pressure chronic ulcer of other part of left lower leg limited to breakdown of skin; I89.0 Lymphedema, not elsewhere classified; I87.091 Postthrombotic syndrome with other complications of right lower extremity; F32.9 Major depressive disorder, single episode, unspecified; Z86.711 Personal history of pulmonary embolism; Z86.718 Personal history of other venous thrombosis and embolism ==

== ENCOUNTER → 2020-01-22 | Outpatient (CLI) | payer MEDICARE, SELFPAY | LOC: M.WC 01-08 09:00 | DX: I83.028 Varicose veins of left lower extremity with ulcer other part of lower leg (principal); I87.012 Postthrombotic syndrome with ulcer of left lower extremity; L97.821 Non-pressure chronic ulcer of other part of left lower leg limited to breakdown of skin; I87.091 Postthrombotic syndrome with other complications of right lower extremity; I89.0 Lymphedema, not elsewhere classified; Z86.711 Personal history of pulmonary embolism ==

== ENCOUNTER → 2020-04-08 | Outpatient (CLI) | payer MEDICARE, SELFPAY ==
[2020-04-08 14:32] LABS: ABSOLUTE EOSINOPHILS 0.3 thou/uL (0.0-0.7); ABSOLUTE LYMPHOCYTES 1.4 thou/uL (0.8-5.3); ABSOLUTE MONOCYTES 0.5 thou/uL (0.0-1.2); ABSOLUTE NEUTROPHILS 3.2 thou/uL (1.6-8.1); BASOPHILS 0.2 %; EOSINOPHILS 5.6 %; HEMATOCRIT 38.3 % (37.0-47.0); HEMOGLOBIN 12.9 gm/dL (12.0-15.0); MCH 33.6 pg (26.0-34.0); MCHC 33.8 g/dL (28.0-37.0); MCV 99.5 fL (80.0-100.0); MONOCYTES 8.9 %; MPV 8.7 fl. (7.2-11.1); NUCLEATED RBCS 0 /100WBC; PLATELET COUNT* 167 thou/uL (150-400); POLYS 59.3 %; RBC 3.85 mil/uL (4.20-5.00); RDW-CV 14.7 % (10.5-14.5); WBC 5.4 thou/uL (4.0-11.0)
[2020-04-08 14:43] LABS: APTT 29.7 Seconds (25.0-31.3); INR 1.5
[2020-04-08 14:58] LABS: ALBUMIN 3.3 g/dL (3.4-5.0); CALCIUM 8.9 mg/dL (8.5-10.1); CREATININE 0.8 mg/dL (0.6-1.3); POTASSIUM 3.9 mmol/L (3.5-5.1); TOTAL BILIRUBIN 0.6 mg/dL (<0.1-1.0); TOTAL PROTEIN 8.5 g/dL (6.4-8.2)
== END ==
LOC: M.WC 12:57
PROVIDERS: Emergency Medicine Undersea and Hyperbaric Medicine
DX: I83.028 Varicose veins of left lower extremity with ulcer other part of lower leg (principal); L97.821 Non-pressure chronic ulcer of other part of left lower leg limited to breakdown of skin; I89.0 Lymphedema, not elsewhere classified; I87.091 Postthrombotic syndrome with other complications of right lower extremity; I87.012 Postthrombotic syndrome with ulcer of left lower extremity; F32.9 Major depressive disorder, single episode, unspecified; Z86.718 Personal history of other venous thrombosis and embolism; Z86.711 Personal history of pulmonary embolism; Z79.01 Long term (current) use of anticoagulants

== ENCOUNTER → 2020-04-22 | Outpatient (CLI) | payer MEDICARE | LOC: M.WC 04:13 | DX: I87.093 Postthrombotic syndrome with other complications of bilateral lower extremity (principal); I83.028 Varicose veins of left lower extremity with ulcer other part of lower leg; L97.821 Non-pressure chronic ulcer of other part of left lower leg limited to breakdown of skin; I89.0 Lymphedema, not elsewhere classified; I87.2 Venous insufficiency (chronic) (peripheral); F32.9 Major depressive disorder, single episode, unspecified; Z86.718 Personal history of other venous thrombosis and embolism; Z79.82 Long term (current) use of aspirin ==

== ENCOUNTER → 2020-05-06 | Outpatient (CLI) | payer MEDICARE, SELFPAY | LOC: M.WC 04:24 | PROVIDERS: ATTEND Emergency Medicine Undersea and Hyperbaric Medicine | DX: I83.028 Varicose veins of left lower extremity with ulcer other part of lower leg (principal); I87.012 Postthrombotic syndrome with ulcer of left lower extremity; L97.821 Non-pressure chronic ulcer of other part of left lower leg limited to breakdown of skin; I87.091 Postthrombotic syndrome with other complications of right lower extremity; I89.0 Lymphedema, not elsewhere classified; Z86.718 Personal history of other venous thrombosis and embolism; F32.9 Major depressive disorder, single episode, unspecified; Z86.711 Personal history of pulmonary embolism ==

== ENCOUNTER → 2020-05-27 | Outpatient (CLI) | payer MEDICARE | LOC: M.WC 04:16 | PROVIDERS: ATTEND Emergency Medicine Undersea and Hyperbaric Medicine | DX: I83.028 Varicose veins of left lower extremity with ulcer other part of lower leg (principal); I87.012 Postthrombotic syndrome with ulcer of left lower extremity; L97.822 Non-pressure chronic ulcer of other part of left lower leg with fat layer exposed; I89.0 Lymphedema, not elsewhere classified; I87.091 Postthrombotic syndrome with other complications of right lower extremity; F32.9 Major depressive disorder, single episode, unspecified; Z86.718 Personal history of other venous thrombosis and embolism; Z86.711 Personal history of pulmonary embolism ==

== ENCOUNTER → 2020-07-08 | Outpatient (CLI) | payer MEDICARE | LOC: M.WC 05:15 | PROVIDERS: ATTEND Emergency Medicine Undersea and Hyperbaric Medicine | DX: I87.012 Postthrombotic syndrome with ulcer of left lower extremity (principal); I83.028 Varicose veins of left lower extremity with ulcer other part of lower leg; L97.821 Non-pressure chronic ulcer of other part of left lower leg limited to breakdown of skin; I87.091 Postthrombotic syndrome with other complications of right lower extremity; I89.0 Lymphedema, not elsewhere classified; I87.2 Venous insufficiency (chronic) (peripheral); F32.9 Major depressive disorder, single episode, unspecified; Z86.718 Personal history of other venous thrombosis and embolism; Z79.82 Long term (current) use of aspirin ==

== ENCOUNTER → 2020-07-22 | Outpatient (CLI) | payer MEDICARE | LOC: M.WC 03:54 | PROVIDERS: ATTEND Emergency Medicine Undersea and Hyperbaric Medicine | DX: I83.028 Varicose veins of left lower extremity with ulcer other part of lower leg (principal); I87.012 Postthrombotic syndrome with ulcer of left lower extremity; L97.822 Non-pressure chronic ulcer of other part of left lower leg with fat layer exposed; I89.0 Lymphedema, not elsewhere classified; F32.9 Major depressive disorder, single episode, unspecified; Z86.711 Personal history of pulmonary embolism; Z86.718 Personal history of other venous thrombosis and embolism ==

== ENCOUNTER → 2020-08-05 | Outpatient (CLI) | payer MEDICARE | LOC: M.WC 03:38 | PROVIDERS: ATTEND Emergency Medicine Undersea and Hyperbaric Medicine | DX: I83.028 Varicose veins of left lower extremity with ulcer other part of lower leg (principal); I87.012 Postthrombotic syndrome with ulcer of left lower extremity; L97.822 Non-pressure chronic ulcer of other part of left lower leg with fat layer exposed; I83.023 Varicose veins of left lower extremity with ulcer of ankle; L97.321 Non-pressure chronic ulcer of left ankle limited to breakdown of skin; I87.001 Postthrombotic syndrome without complications of right lower extremity; I89.0 Lymphedema, not elsewhere classified; F32.9 Major depressive disorder, single episode, unspecified; Z86.711 Personal history of pulmonary embolism; Z86.718 Personal history of other venous thrombosis and embolism ==

== ENCOUNTER → 2020-09-16 | Outpatient (CLI) | payer MEDICARE | LOC: M.WC 07:48 | PROVIDERS: ATTEND Emergency Medicine Undersea and Hyperbaric Medicine | DX: I87.032 Postthrombotic syndrome with ulcer and inflammation of left lower extremity (principal); I83.028 Varicose veins of left lower extremity with ulcer other part of lower leg; L97.822 Non-pressure chronic ulcer of other part of left lower leg with fat layer exposed; I83.023 Varicose veins of left lower extremity with ulcer of ankle; L97.321 Non-pressure chronic ulcer of left ankle limited to breakdown of skin; I87.091 Postthrombotic syndrome with other complications of right lower extremity; I89.0 Lymphedema, not elsewhere classified; I87.2 Venous insufficiency (chronic) (peripheral); F32.9 Major depressive disorder, single episode, unspecified; Z86.718 Personal history of other venous thrombosis and embolism; Z86.711 Personal history of pulmonary embolism; Z79.82 Long term (current) use of aspirin ==

== ENCOUNTER → 2020-10-14 | Outpatient (CLI) | payer MEDICARE | LOC: M.WC 07:51 | PROVIDERS: ATTEND Emergency Medicine Undersea and Hyperbaric Medicine | DX: I87.032 Postthrombotic syndrome with ulcer and inflammation of left lower extremity (principal); I83.028 Varicose veins of left lower extremity with ulcer other part of lower leg; L97.822 Non-pressure chronic ulcer of other part of left lower leg with fat layer exposed; L97.321 Non-pressure chronic ulcer of left ankle limited to breakdown of skin; I87.2 Venous insufficiency (chronic) (peripheral); I89.0 Lymphedema, not elsewhere classified; I87.091 Postthrombotic syndrome with other complications of right lower extremity; F32.9 Major depressive disorder, single episode, unspecified; Z86.718 Personal history of other venous thrombosis and embolism; Z86.711 Personal history of pulmonary embolism; Z79.82 Long term (current) use of aspirin ==